=== PATIENT | male | born 1960 | race Caucasian/White ===

== ENCOUNTER 2019-03-24 09:04 | Day surgery (SDC) | payer BC ==
[2019-03-24] MEDS ORDERED: LIDOCAINE 2% MDV (20MG/ML) 20ML VIAL IV ONE (09:05)
[2019-03-24] MEDS ORDERED: PROPOFOL 10 MG/ML VIAL IV ONE (09:05)
[2019-03-24] MEDS ORDERED: FENTANYL PF 100MCG/2ML VIAL IV ONE (09:05)
--- NOTE | 2019-03-24 14:20 | Operative Note ---
OPERATION: ESOPHAGOGASTRODUODENOSCOPY with biopsy. PREOPERATIVE DIAGNOSIS: New-onset dyspepsia. POSTOPERATIVE DIAGNOSES: 1. 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 2. Normal stomach, rule out occult H pylori. PROCEDURE: After informed consent was obtained from the patient, she was placed in the left lateral decubitus position in the endoscopy suite, sedated and monitored by the department of anesthesia. A well-lubricated WCI003 gastroscope was placed in the posterior oropharynx under direct visualization and passed to the proximal esophagus. The endoscope was advanced through the proximal, mid, and distal esophagus. The GE junction demonstrated irregularity of the squamocolumnar border as well as an island of columnar epithelium. No nodularity, ulcers, strictures, or varices were seen. The gastric body and antrum were inspected and were unremarkable. The pylorus, duodenal bulb, and sweep were unremarkable. J-turn views of the proximal stomach were unrevealing. The endoscope was straightened and random gastric biopsies were obtained to rule out occult H pylori infection. The endoscope was retracted into the level of the GE junction/distal esophagus. Four-quadrant biopsies obtained from the irregular squamocolumnar border as well as the columnar island. The endoscope was removed from the patient with no new findings noted. RECOMMENDATIONS: The patient should increase his PPI to 40 mg daily. He may require repeat upper endoscopy in 3 years should Damon's be confirmed. As always, thank you for allowing me to participate in the healthcare of your patients. DELIA
== END 2019-03-24 10:30 | disposition home or self-care (01) ==
LOC: HOP 09:04
PROVIDERS: ATTEND Internal Medicine Gastroenterology
DX: R10.13 Epigastric pain (principal); R10.84 Generalized abdominal pain; K31.89 Other diseases of stomach and duodenum; K20.0 Eosinophilic esophagitis; K21.9 Gastro-esophageal reflux disease without esophagitis; E78.00 Pure hypercholesterolemia, unspecified